=== PATIENT | female | born 1960 | race Caucasian/White ===

== ENCOUNTER → 2019-05-05 | Outpatient (CLI) | payer BC ==
--- NOTE | 2019-05-05 14:13 | KCIC ---
PELVIS, LUMBAR SPINE 2-3V History: Fibromyalgia. Unspecified hip pain and low back pain Single view AP pelvis No evidence of acute fracture or aggressive bone destruction. No evidence of acute fracture or aggressive bone destruction. Joint spaces are grossly intact. Small pelvic calcifications are compatible phleboliths. Two-view lumbar spine Vertebral body height maintained. Mild degenerative spondylosis with marginal spurring. Aorta is densely calcified but no obvious aneurysmal dilatation. Moderate retained stool identified in the colon. IMPRESSION: 1. No evidence of acute abnormality. 2. Degenerative spondylosis. 3. Moderate retained stool in the colon, correlate for constipation. 4. MRI could be helpful for further evaluation of the skeletal pelvis or lumbar spine as indicated. Electronically signed by: Nahun Cruz MD (05/05/2019 2:11 PM) [facility]
== END | disposition home or self-care (01) ==
LOC: KCIC 12:33
PROVIDERS: ATTEND Internal Medicine Rheumatology
DX: M47.816 Spondylosis without myelopathy or radiculopathy, lumbar region (principal); K59.00 Constipation, unspecified; G89.29 Other chronic pain; M79.7 Fibromyalgia
CPT/HCPCS: 72100; 72170